=== PATIENT | female | born 1990 | race Caucasian/White ===

== ENCOUNTER 2024-05-17 12:46 | Emergency (ER) | payer BC ==
[2024-05-17 12:50] VITALS: TEMP 97.6
[2024-05-17] MEDS: SODIUM CHLORIDE 0.9% 1,000 ML IV STA (13:27)
[2024-05-17] MEDS: ONDANSETRON 4 MG/2 ML VIAL IVP STA (13:28)
[2024-05-17] MEDS: KETOROLAC 15 MG/ML 1 ML VIAL IVP STA (13:29)
--- NOTE | 2024-05-17 13:37 | ED ---
Abdominal Pain HPI - General Chief Complaint: Abdominal Pain Stated Complaint: abd pain Time Seen by Provider: 05/17/24 12:52 Source: patient, RN notes reviewed Mode of arrival: ambulatory Limitations: no limitations - History of Present Illness Initial Comments: This is a 33-year-old female who presents to the emergency department for abdominal pain. States that 3 days ago she developed severe pain in the lower abdomen/pelvic region. This started to radiate to the right lower quadrant and then began to radiate upwards as well. She has also had ongoing nausea and has not been eating or drinking as a result. Pain has started to subside to some e xtent but is still bothersome. Pain does not radiate into the back. Denies any changes in bowel/bladder habits. Also denies any history of similar symptoms in the past. MD Complaint: abdominal pain - Related Data Home Medications Medication Instructions Recorded Confirmed Albuterol Nebulized [Ventolin 2.5 mg INHALATION Q4H 08/24/15 03/11/16 Nebulized] Pnv,Calcium 72/Iron/Folic Acid 1 each PO DAILY 08/24/15 03/11/16 [ Plus Tablet] Previous Rx's Medication Instructions Recorded Ketorolac [Toradol] 10 mg PO Q6HR PRN #15 tab 05/17/24 Ondansetron Odt [Zofran Odt] 4 mg PO Q8HR PRN #20 tab 05/17/24 Allergies Allergy/AdvReac Type Severity Reaction Status Date / Time No Known Allergies Allergy Verified 05/17/24 12:50 Review of Systems ROS Statement: Those systems with pertinent positive or pertinent negative responses have been documented in the HPI. ROS Other: All systems not noted in ROS Statement are negative. 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 History of Any Multi-Drug Resistant Organisms: None Reported Past Surgical History: Breast Surgery Additional Past Surgical History / Comment(s): left breast biopsy Past Anesthesia/Blood Transfusion Reactions: No Reported Reaction Past Psychological History: No Psychological Hx Reported Smoking Status: Never smoker Past Alcohol Use History: Occasional Past Drug Use History: None Reported - Past Family History Mother Family Medical History: No Reported History General Exam Limitations: no limitations General appearance: alert, in no apparent distress Head exam: Present: atraumatic, normocephalic, normal inspection Respiratory exam: Present: normal lung sounds bilaterally. Absent: respiratory distress, wheezes, rales, rhonchi, stridor Cardiovascular Exam: Present: regular rate, normal rhythm, normal heart sounds. Absent: systolic murmur, diastolic murmur, rubs, gallop, clicks GI/Abdominal exam: Present: soft, tenderness (RLQ), normal bowel sounds. Absent: distended Neurological exam: Present: alert, oriented X3, CN II-XII intact Psychiatric exam: Present: normal affect, normal mood Skin exam: Present: warm, dry, intact, normal color. Absent: rash Course Vital Signs 05/17/24 05/17/24 12:48 17:09 Temperature 97.6 F Pulse Rate 98 88 Respiratory 18 17 Rate Blood Pressure 123/78 118/78 O2 Sat by Pulse 99 98 Oximetry Medical Decision Making - Medical Decision Making This is a 33 year old female who presents to the emergency department for ab dominal pain. Was pt. sent in by a medical professional or institution? @ -No Did you speak to anyone other than the patient for history? @ -No Did you review nursing and triage notes? @ -Yes, and I agree, it is accurate with regards to the patient's symptoms. Were old charts reviewed? @ -No Differential Diagnosis? @ -Differential Abdominal Pain Women: Appendicitis, Cholecystitis, diverticulosis, ischemic bowel, pancreatitis, hepatitis, UTI, gastroenteritis, AAA, incarcerated hernia, bowel obstruction, constipation, inflammatory bowel, hepatitis, peptic ulcer disease, splenic infarction, perforated viscus, vulvitis, ovarian torsion, PID, kidney stone, pl acenta abruption, this is not meant to be an all-inclusive list EKG interpreted by me (3pts min.)? @ -Not obtained X-rays interpreted by me (1pt min.)? @ -Not obtained CT interpreted by me (1pt min.)? @ -CT scan of the abdomen and pelvis obtained. My interpretation identifies a right-sided ovarian cyst. U/S interpreted by me (1pt. min.)? @ -Not obtained What testing was considered but not performed? (CT, X-rays, U/S, labs)? Why? @ -None What meds were considered but not given? Why? @ -None Did you discuss the management of the patient with other professionals? @ -No Did you reconcile home meds? @ -No Was smoking cessation discussed for >3mins.? @ -No Was critical care preformed (if so, how long)? @ -No Were there social determinants of health that impacted care today? How? (Homelessness, low income, unemployed, alcoholism, drug addiction, transportation, low edu. Level, literacy, decrease access to med. care, nursing home, rehab)? @ -No Was there de-escalation of care discussed even if they declined? (Discuss DNR or withdrawal of care, Hospice)? @ -No What co-morbidities impacted this encounter? (DM, HTN, Smoking, COPD, CAD, Cancer, CVA, Hep., AIDS, mental health diagnosis, sleep apnea, morbid obesity)? @ -None Was patient admitted / discharged? @ -Discharged. Lab work unremarkable. Urinalysis negative for signs of infe ction. CT scan of the abdomen and pelvis demonstrates a 2.7 cm cyst of the right ovary with moderate pelvic free fluid that could be physiologic or represent a recently ruptured follicle/hemorrhagic cyst. The appendix was not visualized. Symptoms well-controlled in the emergency department. Findings reviewed with the patient. Advised that symptoms may very well be related to a ruptured ovarian cyst, however irregularities related to the appendix cannot definitively be ruled out based on current imaging. However, given the lack of leukocytosis and fevers, that would be less likely. We discussed that fluid in the pelvis following rupture of the cyst can contribute to ongoing pain. She was given a prescription for Toradol and Zofran for additional symptomatic management. Otherwise advised follow-up with her [employer] and PCP. Undiagnosed new problem with uncertain prognosis? @ -None Drug Therapy requiring intensive monitoring for toxicity (Heparin, Nitro, Insulin, Cardizem)? @ -None Were any procedures done? @ -None Diagnosis/symptom? @ -Ruptured ovarian cyst Acute, or Chronic, or Acute on Chronic? @ -Acute Uncomplicated (without systemic symptoms) or Complicated (systemic symptoms)? @ -Uncomplicated Side effects of treatment? @ -None Exacerbation, Progression, or Severe Exacerbation] @ -Not applicable Poses a threat to life or bodily function? @ -No Return precautions reviewed in depth, the patient is instructed to return to the emergency department with any new, worsening, or concerning symptoms. Patient verbalized understanding. This case was discussed in detail with the attending ED physician, Dr. Canada. Presentation, findings, and treatment plan discussed in detail as well. - Lab Data Result diagrams: 05/17/24 13:24 05/17/24 13:24 Lab Results 05/17/24 05/17/24 05/17/24 Range/Units 13:24 13:24 13:24 WBC 5.5 (3.8-10.6) k/uL RBC 4.25 (3.80-5.40) m/uL Hgb 11.5 (11.4-16.0) gm/dL Hct 36.9 (34.0-46.0) % MCV 86.7 (80.0-100.0) fL MCH 27.1 (25.0-35.0) pg MCHC 31.3 (31.0-37.0) g/dL RDW 14.2 (11.5-15.5) % Plt Count 187 (150-450) k/uL MPV 8.1 Neutrophils % 66 % Lymphocytes % 21 % Monocytes % 9 % Eosinophils % 2 % Basophils % 1 % Neutrophils # 3.7 (1.3-7.7) k/uL Lymphocytes # 1.1 (1.0-4.8) k/uL Monocytes # 0.5 (0-1.0) k/uL Eosinophils # 0.1 (0-0.7) k/uL Basophils # 0.0 (0-0.2) k/uL Sodium (137-145) mmol/L Potassium (3.5-5.1) mmol/L Chloride (98-107) mmol/L Carbon Dioxide (22-30) mmol/L Anion Gap mmol/L BUN (7-17) mg/dL Creatinine (0.52-1.04) mg/dL Est GFR (CKD-EPI)AfAm (>60 ml/min/1.73 sqM) Est GFR (CKD-EPI)NonAf (>60 ml/min/1.73 sqM) Glucose (74-99) mg/dL Plasma Lactic Acid Gilberto (0.7-2.0) mmol/L Calcium (8.4-10.2) mg/dL Total Bilirubin (0.2-1.3) mg/dL AST (14-36) U/L ALT (4-34) U/L Alkaline Phosphatase (38-126) U/L Total Protein (6.3-8.2) g/dL Albumin (3.5-5.0) g/dL Amylase (30-110) U/L Lipase (23-300) U/L HCG, Qual Urine Color Colorless Urine Appearance Clear (Clear) Urine pH 7.0 (5.0-8.0) Ur Specific [place] 1.004 (1.001-1.035) Urine Protein Negative (Negative) Urine Glucose (UA) Negative (Negative) Urine Ketones Negative (Negative) Urine Blood Trace H (Negative) Urine Nitrite Negative (Negative) Urine Bilirubin Negative (Negative) Urine Urobilinogen <2.0 (<2.0) mg/dL Ur Leukocyte Esterase Negative (Negative) Urine RBC 1 (0-5) /hpf Urine WBC 2 (0-5) /hpf Ur Squamous Epith Cells 2 (0-4) /hpf Urine HCG, Qual Not Detected (Not Detectd) 05/17/24 05/17/24 Range/Units 13:24 13:24 WBC (3.8-10.6) k/uL RBC (3.80-5.40) m/uL Hgb (11.4-16.0) gm/dL Hct (34.0-46.0) % MCV (80.0-100.0) fL MCH (25.0-35.0) pg MCHC (31.0-37.0) g/dL RDW (11.5-15.5) % Plt Count (150-450) k/uL MPV Neutrophils % % Lymphocytes % % Monocytes % % Eosinophils % % Basophils % % Neutrophils # (1.3-7.7) k/uL Lymphocytes # (1.0-4.8) k/uL Monocytes # (0-1.0) k/uL Eosinophils # (0-0.7) k/uL Basophils # (0-0.2) k/uL Sodium 136 L (137-145) mmol/L Potassium 3.7 (3.5-5.1) mmol/L Chloride 107 (98-107) mmol/L Carbon Dioxide 24 (22-30) mmol/L Anion Gap 5 mmol/L BUN 9 (7-17) mg/dL Creatinine 0.66 (0.52-1.04) mg/dL Est GFR (CKD-EPI)AfAm >90 (>60 ml/min/1.73 sqM) Est GFR (CKD-EPI)NonAf >90 (>60 ml/min/1.73 sqM) Glucose 89 (74-99) mg/dL Plasma Lactic Acid Gilberto 0.8 (0.7-2.0) mmol/L Calcium 9.2 (8.4-10.2) mg/dL Total Bilirubin 0.7 (0.2-1.3) mg/dL AST 20 (14-36) U/L ALT 13 (4-34) U/L Alkaline Phosphatase 58 (38-126) U/L Total Protein 7.2 (6.3-8.2) g/dL Albumin 4.4 (3.5-5.0) g/dL Amylase 58 (30-110) U/L Lipase 70 (23-300) U/L HCG, Qual Not Detected Urine Color Urine Appearance (Clear) Urine pH (5.0-8.0) Ur Specific [place] (1.001-1.035) Urine Protein (Negative) Urine Glucose (UA) (Negative) Urine Ketones (Negative) Urine Blood (Negative) Urine Nitrite (Negative) Urine Bilirubin (Negative) Urine Urobilinogen (<2.0) mg/dL Ur Leukocyte Esterase (Negative) Urine RBC (0-5) /hpf Urine WBC (0-5) /hpf Ur Squamous Epith Cells (0-4) /hpf Urine HCG, Qual (Not Detectd) - Radiology Data Radiology results: report reviewed, image reviewed Disposition Clinical Impression: Rupture of cyst of right ovary Disposition: HOME SELF-CARE Instructions (If sedation given, give patient instructions): Ruptured Ovarian Cyst (ED) Additional Instructions: Return to the emergency department with any new, worsening, or concerning symptoms. Take the Toradol with Tylenol as needed for pain relief. If you choose to take the Toradol, do not take any other anti-inflammatories such as ibuprofen, take one or the other. You can take the Zofran up to every 8 hours as needed for nausea and vomiting. Follow up with your primary care provider in 1-2 days. Prescriptions: Ketorolac [Toradol] 10 mg PO Q6HR PRN #15 tab PRN Reason: Pain Ondansetron Odt [Zofran Odt] 4 mg PO Q8HR PRN #20 tab PRN Reason: Nausea And Vomiting Is patient prescribed a controlled substance at d/c from ED?: No Referrals: Yesenia Neff MD [Primary Care Provider] - 1-2 days Time of Disposition: 16:36
[2024-05-17 13:40] LABS: Basophils % (A) 1 %; Eosinophils # (A) 0.1 k/uL (0-0.7); Eosinophils % (A) 2 %; HCT 36.9 % (34.0-46.0); HGB 11.5 gm/dL (11.4-16.0); Lymphocytes # (A) 1.1 k/uL (1.0-4.8); Lymphocytes % (A) 21 %; MCH 27.1 pg (25.0-35.0); MCHC 31.3 g/dL (31.0-37.0); MCV 86.7 fL (80.0-100.0); Mean Platelet Volume 8.1; Monocytes # (A) 0.5 k/uL (0-1.0); Monocytes % (A) 9 %; Neutrophils # (A) 3.7 k/uL (1.3-7.7); Neutrophils % (A) 66 %; Platelet Count 187 k/uL (150-450); RBC 4.25 m/uL (3.80-5.40); RDW 14.2 % (11.5-15.5); WBC 5.5 k/uL (3.8-10.6)
[2024-05-17 13:52] LABS: ALT 13 U/L (4-34); AST 20 U/L (14-36); African American GFR (CKD) >90 (>60 ml/min/1.73 sqM); Albumin 4.4 g/dL (3.5-5.0); Alkaline Phosphatase 58 U/L (38-126); Amylase 58 U/L (30-110); Anion Gap 5 mmol/L; Blood Urea Nitrogen 9 mg/dL (7-17); Calcium 9.2 mg/dL (8.4-10.2); Carbon Dioxide 24 mmol/L (22-30); Chloride 107 mmol/L (98-107); Glucose 89 mg/dL (74-99); Lipase 70 U/L (23-300); Non-African American GFR(CKD) >90 (>60 ml/min/1.73 sqM); Potassium 3.7 mmol/L (3.5-5.1); Sodium 136 mmol/L (137-145); Total Bilirubin 0.7 mg/dL (0.2-1.3); Total Protein 7.2 g/dL (6.3-8.2)
[2024-05-17 14:07] LABS: Appearance,Urine Clear (Clear); Bilirubin,Urine Negative (Negative); Blood,Urine Trace (Negative); Color,Urine Colorless; Glucose,Urine (UA) Negative (Negative); Ketones,Urine Negative (Negative); Leukocyte Esterase,Urine Negative (Negative); Nitrite,Urine Negative (Negative); Protein,Urine Negative (Negative); RBC,Urine 1 /hpf (0-5); Specific Gravity,Urine 1.004 (1.001-1.035); Squamous Epithelial Cell,Urine 2 /hpf (0-4); Urobilinogen,Urine <2.0 mg/dL (<2.0); WBC,Urine 2 /hpf (0-5)
[2024-05-17 14:16] LABS: HCG,Qualitative Serum Not Detected
--- NOTE | 2024-05-17 16:26 | CT ---
EXAMINATION TYPE: CT abdomen pelvis w con DATE OF EXAM: 05/17/2024 COMPARISON: NONE HISTORY: 33 year-old female right lower quadrant ABD PAIN TECHNIQUE: Contiguous axial scanning of the abdomen and pelvis following administration of 100 ml Iso dioni 300 IV contrast. Delayed images through the kidneys and coronal/sagittal reconstructions perform ed. CT DLP: 610 mGycm Automated exposure control for dose reduction was used. FINDINGS: Heart normal size without pericardial effusion. A couple tiny hepatic hypodensities measuring up to 7 mm, likely tiny cysts. Portal venous system is patent. No biliary ductal dilatation. Gallbladder, adrenal glands, kidneys, spleen, and pancreas within normal limits. No dilated small bowel or free air. Moderate stool right side of the colon. No pericolic inflammatory change. Appendix not clearly identi fied. Bladder is urine distended. A couple pelvic fluid was. Uterus anteverted. Heterogeneous low density along the endometrium. Possible 7 mm nodularity at the f undal endometrium. Both ovaries are visualized. There is a 2.7 cm cyst of the right ovary and moderat e intermediate density pelvic free fluid. No pelvic lymphadenopathy. No osseous destructive process. IMPRESSION: 1. A 2.7 CM CYST OF THE RIGHT OVARY WITH MODERATE PELVIC FREE FLUID. FINDINGS COULD BE PHYSIOLOGIC OR COULD REPRESENT A RECENTLY RUPTURED FOLLICLE/HEMORRHAGIC CYST. 2. HETEROGENEOUS THICKENING OF THE ENDOMETRIUM, POSSIBLE LATE SECRETORY PHASE OF THE MENSTRUAL CYCLE; CLINICALLY CORRELATE. FOLLOW-UP ULTRASOUND IN 6-8 WEEKS TO REASSESS. A 7 MM AREA OF NODULARITY ALONG THE FUNDAL ENDOMETRIUM IS NONSPECIFIC. AN ENDOMETRIAL POLYP OR SUBMUCOSAL FIBROID IS IN THE DIFFEREN TIAL.
[2024-05-17] MEDS: ACET/COD 300 MG/30 MG STARTER PACK 6 TAB BTL PO STA (17:05)
[2024-05-17 17:10] VITALS: BP 118/78; PULSE 88; RESP 17
== END 2024-05-17 17:10 | disposition home or self-care (01) ==
LOC: EC 12:46
DX: N83.201 Unspecified ovarian cyst, right side (principal)
CPT/HCPCS: 36415; 80053; 82150; 83605; 83690; 85025; 81001; 81025; 84703; 74177; 99284; 96374; 96375; 96361; J2405; J1885; Q9967